=== PATIENT | female | born 1990 | race Caucasian/White ===

== ENCOUNTER 2018-05-05 11:15 | Outpatient (CLI) | payer OTHER, SELFPAY ==
--- NOTE | 2018-05-05 14:19 | PC.NURSE ---
HERE FOR [facility] PRE EMPLOYMENT PHYSICAL
== END 2018-05-05 12:14 | disposition home or self-care (01) ==
LOC: UTC.OUT 11:21
PROVIDERS: Visit Provider Nurse Practitioner
DX: Z02.1 Encounter for pre-employment examination (principal)

== ENCOUNTER → 2018-07-18 13:46 | Outpatient (CLI) | payer OTHER, SELFPAY ==
--- NOTE | 2018-07-18 13:59 | US_ITS ---
US OB /maternal detail: INDICATION: ITS.REASON: US OB Complete ORDERING PHYSICIAN: Ester Alfred MD PATIENT AGE: 28 years US OB /maternal detail: INDICATION: ITS.REASON: US OB Complete ORDERING PHYSICIAN: Ester Alfred MD PATIENT AGE: 28 years TECHNIQUE: ultrasound transabdominal scanning. MW COMPARISON: No previous relevant studies. FINDINGS: Single viable intrauterine gestation. Cephalic position Currently. Placenta: Anterior placenta grade 1. No previa The cervix appears satisfactory & closed measuring nearly 4 cm in length. Complete survey performed and was unremarkable on the submitted images as in PACS. No discrete anomalies identified on survey imaging by technologist. Active fetus.Three-vessel cord with satisfactory umbilical cord insertion. Survey of brain & ventricles. In posterior fossa unremarkable Face and neck survey unremarkable. Nasion intact Diaphragm and chest views unremarkable. 4- chamber heart imaged. Cine loop of 4 chamber heart included. LVOT region unremarkable Abdomen: Both kidneys noted and unremarkable. Stomach noted and satisfactory. Spine: Survey of the spine satisfactory with no anomalies identified nor imaged. Both arms and legs noted. Appears to be a female fetus Amniotic Fluid: Adequate. Upper normal amount. Maternal adnexa: No significant findings encountered. Measurements: Average ultrasound age 19 week 6 day. Gestational Age 20 week 5 day. Estimated due date by ultrasound age 812/06/2018. Estimated weight 313 grams. +/- 46 g LMP Growth percentile 9% BPD = 20 week 0 day OFD = 20 week 1 day HC = 19 week 2 day AC = . 20 week 0 day FL = 20 week 0 day Heart Rate = 146 BPM Cerebellum = 21 week 1 day Humerus = 20 week 0 day HC/AC = 1.13.(1.09-1.26.) CI = 79%.(70-86%). FL/BPD is 69%. FL/AC is 22%. WNL IMPRESSION: 19 weeks 6 day Average Ultrasound Age Cephalic position . Anterior placenta . Active fetus Today's complete Anatomical survey was unremarkable & WNL
== END ==
PROVIDERS: PCP Obstetrics & Gynecology; Visit Provider Obstetrics & Gynecology
DX: Z36.0 Encounter for antenatal screening for chromosomal anomalies (principal)
CPT/HCPCS: 76811

== ENCOUNTER → 2018-07-27 13:31 | Outpatient (CLI) | payer OTHER, SELFPAY ==
[2018-07-27 14:01] LABS: Basophils % 0.2 % (0.1-2.0); Eosinophils # 0.1 K/mm3 (0.0-0.4); Eosinophils % 0.7 % (0.1-12.0); Hematocrit 34.8 % (37.0-47.0); Hemoglobin 11.6 g/dL (12.2-16.2); Lymphocytes # 2.2 K/mm3 (0.7-4.5); Lymphocytes % 21.3 % (10-50); Mean Corpuscular HGB Conc 33.2 g/dL (31.8-35.4); Mean Corpuscular Hemoglobin 28.7 pg (27.0-31.2); Mean Corpuscular Volume 86.5 fl (81-99); Mean Platelet Volume 7.7 fl (7.4-10.4); Monocytes # 0.3 K/mm3 (0.1-1.0); Monocytes % 2.6 % (1.7-9.3); Neutrophils # 7.9 K/mm3 (1.8-7.8); Neutrophils % 75.2 % (37.0-80.0); Platelet Count 296 K/mm3 (142-424); Red Blood Count 4.03 M/mm3 (4.20-5.40); Red Cell Distribution Width 13.1 % (11.5-17.5); White Blood Count 10.5 K/mm3 (4.8-10.8)
[2018-07-29 18:30] LABS: HIV Screen 4th Generation wRfx Non Reactive (Non Reactive); Hepatitis B Surface Antigen Negative (Negative); Hepatitis C Antibody <0.1 s/co ratio (0.0-0.9); Rapid Plasma Reagin Ab Titer Non Reactive (NonRea<1:1); Rubella Antibodies, IgG 1.74 index (Immune >0.99)
== END ==
PROVIDERS: Visit Provider Obstetrics & Gynecology
DX: Z34.90 Encounter for supervision of normal pregnancy, unspecified, unspecified trimester (principal)
CPT/HCPCS: 36415; 85025; 86592; 86703; 86762; 86850; 87340; 87380; G0432

== ENCOUNTER → 2018-08-23 10:03 | Outpatient (CLI) | payer OTHER, SELFPAY ==
[2018-08-23 11:13] LABS: Glucose,Fasting 107 mg/dL (60-105)
[2018-08-23 12:29] LABS: Glucose 1 Hour 116 mg/dL (74-106)
== END ==
PROVIDERS: Visit Provider Obstetrics & Gynecology
DX: Z34.90 Encounter for supervision of normal pregnancy, unspecified, unspecified trimester (principal)
CPT/HCPCS: 36415; 82951

== ENCOUNTER 2018-09-07 15:00 | Outpatient (CLI) | payer OTHER, SELFPAY ==
[2018-09-07 15:18] VITALS: BP 143/73; PULSE 93; RESP 18; TEMP 37.1; O2SAT 100; BMI 38.1
[2018-09-07 15:24] VITALS: BP 131/74
[2018-09-07 15:32] LABS: Microscopic, Urine URINE MICROSCOPIC (MICROSCOPIC)
[2018-09-07 15:38] LABS: Appearance,Urine CLEAR (Clear); Bilirubin,Urine Negative (Negative); Blood, Urine TRACE-I (Negative); Color,Urine YELLOW (Yellow); Glucose,Urine (UA) Negative (Negative); Ketones,Urine Negative (Negative); Leukocyte Esterase,Urine 1+ (Negative); Nitrate,Urine Negative (Negative); Protein,Urine Negative (Negative); Specific Gravity, Urine 1.025 (1.005-1.030); Urobilinogen,Urine 0.2 EU/dl (0.2)
[2018-09-07 15:51] LABS: Amphetamine/Metha Screen,Urine Negative ng/mL (<1000); Barbiturates Screen,Urine Negative ng/mL (<200); Benzodiazepines Screen,Urine Negative ng/mL (<200); Cannabinoid Screen,Urine Negative ng/mL (<50); Cocaine Screen,Urine Negative ng/mL (<300); Methadone Screen,Urine Negative ng/mL (<300); Opiate Screen,Urine Negative ng/mL (<300); Phencyclidine Screen,Urine Negative ng/mL (<25)
[2018-09-07 15:58] LABS: Bacteria,Urine 1+ /lpf; RBC,Urine Occasional #/hpf (0-3)
== END 2018-09-07 16:01 | disposition home or self-care (01) ==
LOC: OBOUT 15:02 → OB 15:04
PROVIDERS: Visit Provider Obstetrics & Gynecology
DX: O26.93 Pregnancy related conditions, unspecified, third trimester (principal); Z3A.28 28 weeks gestation of pregnancy; R10.9 Unspecified abdominal pain
CPT/HCPCS: 59025; 80305; 81001; 87086

== ENCOUNTER → 2018-10-19 14:52 | Outpatient (CLI) | payer OTHER, SELFPAY ==
--- NOTE | 2018-10-19 14:53 | US_ITS ---
US OB follow up: Indication: ITS.REASON: US OB- Growth THAO- LGA ORDERING PHYSICIAN: Ester Alfred MD PATIENT AGE: 28 years FINDINGS: Transabdominal imaging The following parameters are obtained: Average ultrasound age is 33w6d. Estimated due date by ultrasound is 34w0d. Estimated weight is 2286 grams. This is 30th percentile BPD: 33w5d OFD: 34w3d HC: 33w5d AC: 33w6d FL: 34w1d heart rate: 147 bpm. HC/AC: 1.02 (0.96-1.11) Cephalic index: 78% (70-86%) FL/BPD: 79% (71-87%) FL/AC: 22% (20-24%) Amniotic fluid index: 16 cm No obvious anomalies evident. Placenta: Anterior GR 2 Cervix: Appears closed and measures 4 cm IMPRESSION: A single fetus which is in cephalic presentation with an average ultrasound age of 34 weeks 0 days with an estimated weight 2226 g which is 30th percentile. All parameters correlate. See above for details
== END ==
PROVIDERS: Visit Provider Obstetrics & Gynecology
DX: O36.60X0 Maternal care for excessive fetal growth, unspecified trimester, not applicable or unspecified (principal)
CPT/HCPCS: 76816

== ENCOUNTER → 2018-10-26 16:38 | Outpatient (CLI) | payer OTHER, SELFPAY ==
[2018-10-29 05:11] LABS: Neisseria gonorrhoeae, NAA Negative (Negative)
== END ==
PROVIDERS: Visit Provider Obstetrics & Gynecology
DX: Z34.90 Encounter for supervision of normal pregnancy, unspecified, unspecified trimester (principal)
CPT/HCPCS: 86403; 87491; 87591

== ENCOUNTER 2021-06-16 15:57 | Emergency (ER) | payer OTHER, SELFPAY ==
[2021-06-16 16:52] VITALS: BP 130/85; PULSE 85; RESP 16; TEMP 37.1; O2SAT 98; BMI 36.8
--- NOTE | 2021-06-16 17:07 | HMH.EDUTC ---
[facility] Disposition Clinical Impression: Sinusitis Qualifiers: Sinusitis location: unspecified location Chronicity: unspecified Qualified Code(s): J32.9 - Chronic sinusitis, unspecified Disposition: Home, Self-Care Condition on Discharge: Good Instructions: Sinusitis, DI for Sinusitis Additional Instructions: *Monitor Temp, Over the counter Motrin or Tylenol as directed/as needed Tylenol every 4 hours and Motrin every 6 hours (as long as your family doctor has told you that you can take it) for fever or pain. and straight to ER if unable to lower temp less than 101.0 after medication given *Warm salt water gargles may help to soothe the throat *Throat Lozenges *Warm fluids like tea with honey may help to soothe the throat *Sleep elevated *Humidifier/Vaporizer Take medication as prescribed Return if needed Follow up IMMEDIATELY for new or worsening symptoms or no Noticeable improvement over the next 48-72 hours. 911 for difficulty breathing or swallowing Prescriptions: Amoxicillin/Potassium Clav [Amox-Clav 875-125 mg Tablet] 1 tab PO BID #14 tab Transmission Status: Pending to [facility] methylPREDNISolone [Medrol 4mg tab] 4 mg PO DIRECTED #21 tab Transmission Status: Pending to [facility] Referrals: Provider,Referral, MD [Primary Care Provider] - As needed Time of Disposition: 17:20 Medical Decision Making - Sebas Inquiry Pt receiving controlled substance: No Sebas was queried for this patient: No Vital Signs: 06/16/21 16:52 Temperature 98.7 F Temperature Source Oral Pulse Rate [Right Radial] 85 Respiratory Rate 16 Blood Pressure [Right Arm] 130/85 Blood Pressure Mean [Right Arm] 100 Blood Pressure Source [Right Arm] Automatic Cuff Blood Pressure Position [Right Arm] Sitting 02 Sat by Pulse Oximetry 98 Oxygen Delivery Method Room Air - Lab Data Lab results reviewed: Yes: I reviewed the patient's lab results. [facility] HPI - General Stated complaint: sinus infection Time Seen by Provider: 06/16/21 17:07 Mode of Arrival: Ambulatory Source of Information: Patient Limitations: No Limitations Description of Symptoms (Recalled from Triage Doc. by RN): Pt stated that she has sinus pressure and congestions for the last 3 days. HEENT Symptoms (Recalled from RN notes): No Resp Symptoms (Recalled from RN notes): No Skin Symptoms (Recalled from RN notes): No MS Symptoms (Recalled from RN notes): No Functional Status (Recalled from RN notes): n/a - History of Present Illness Provider Complaint: Patient states that she has been having pressure like feeling in her ears, sinuses and behind her eyes States that it has continued to get worse over the last 3 days States that she feels like she may have a sinus infection - Related Data Home Medications Medication Instructions Recorded Confirmed prenat.vits,brayden,uop-vktt-urjba 1 tab PO DAILY 06/02/18 10/26/18 ferrous sulfate 325 mg (65 mg 325 mg PO DAILY 09/01/18 10/26/18 iron) tablet Previous Rx's Medication Instructions Recorded Amoxicillin/Potassium Clav 1 tab PO BID #14 tab 06/16/21 [Amox-Clav 875-125 mg Tablet] methylPREDNISolone [Medrol 4mg 4 mg PO DIRECTED #21 tab 06/16/21 tab] Allergies Allergy/AdvReac Type Severity Reaction Status Date / Time No Known Allergies Allergy Verified 10/26/18 10:38 - Worker's Comp Is this a Worker's Comp case?: No Is this an H Worker's Comp?: No Is this a [place] Worker's Comp?: No [facility] History - Hepatitis A Screen Drug use history?: No High risk sexual behaviors?: No History of sexually transmitted infection?: No Currently employed?: No Childcare worker?: No Do you have indoor plumbing?: Yes Do you have electricity?: Yes Attestation statement:: This patient has been screened for Hepatitis A risk factors. I have reviewed the patient's past medical history: Yes Other Surgeries: Yes: No Previous Surgery. No: Amputation: No Fractures: N
[2021-06-16 17:24] LABS: UTC Pregnancy Test, Urine Negative (Negative)
[2021-06-16 17:31] VITALS: BP 130/85; PULSE 85; RESP 16; TEMP 37.1; O2SAT 98
== END 2021-06-16 17:28 | disposition home or self-care (01) ==
PROVIDERS: Emergency Provider Nurse Practitioner
DX: J32.9 Chronic sinusitis, unspecified (principal)
CPT/HCPCS: 81025; 99212; G0463

== ENCOUNTER 2021-12-16 21:24 | Observation (INO) | payer OTHER, SELFPAY ==
[2021-12-16 22:30] VITALS: BMI 37.6
[2021-12-16 22:31] VITALS: BP 125/75; PULSE 90; RESP 17; O2SAT 100; BMI 37.6
[2021-12-16 23:48] LABS: Microscopic, Urine URINE MICROSCOPIC (MICROSCOPIC)
[2021-12-16 23:58] LABS: Appearance,Urine CLEAR (Clear); Bilirubin,Urine Negative (Negative); Blood, Urine TRACE-L (Negative); Color,Urine YELLOW (Yellow); Glucose,Urine (UA) Negative (Negative); Ketones,Urine Negative (Negative); Leukocyte Esterase,Urine Negative (Negative); Nitrate,Urine Negative (Negative); PH,Urine 5.5 (5.0-8.5); Protein,Urine Negative (Negative); Specific Gravity, Urine >= 1.030 (1.005-1.030); Urobilinogen,Urine 0.2 EU/dl (0.2)
[2021-12-17] LABS: Barbiturates Screen,Urine Negative ng/ml (<200)
[2021-12-17 00:01] LABS: Amphetamine/Metha Screen,Urine Negative ng/ml (<1000); Benzodiazepines Screen,Urine Negative ng/ml (<200)
[2021-12-17 00:02] LABS: Cocaine Screen,Urine Negative ng/ml (<300)
[2021-12-17 00:03] LABS: Methadone Screen,Urine Negative ng/ml (<300)
[2021-12-17 00:04] LABS: Opiate Screen,Urine Negative ng/ml (<300); Phencyclidine Screen,Urine Negative ng/ml (<25)
[2021-12-17 00:07] LABS: Cannabinoid Screen,Urine Negative ng/ml (<50)
[2021-12-17 00:27] LABS: Bacteria,Urine Trace /lpf; Calcium Oxalate Crystals,Urine 1+ /lpf; WBC,Urine Occasional #/hpf (0-3)
--- NOTE | 2021-12-17 06:00 | US_ITS ---
FINAL REPORT CLINICAL HISTORY: KICKED BY EMANUEL ORDER FINDINGS: There is a single live intrauterine gestation. Presentation is breech. The cervix is closed and measures 3.7 cm. Placenta is anterior, grade 1. movement is noted. Normal heart views are seen. AMNIOTIC FLUID: Appropriate amount. MEASUREMENTS: ULTRASOUND AGE: 24 weeks 1 days. GESTATION AGE: 24 weeks 2 days. ESTIMATED WEIGHT: 661 g GROWTH PERCENTILE: 33% LMP percentile BPD: 5.9 cm consistent with 24 weeks 1 days. OFD: 7.7 cm consistent with 24 weeks 2 days. HC: 21.6 cm consistent with 23 weeks 5 days. AC: 19.3 cm consistent with 24 weeks 1 days. FL: 4.4 cm consistent with 24 weeks 3 days. HC/AC: 1.11 CI: 77% FL/BPD: 74% FL/AC: 23% IMPRESSION: Single living IUP with an ultrasound age of 24 weeks 1 day. Reviewed, Interpreted and Dictated by Grzegorz Zavaleta III, MD Transcribed by Linda Mcdonnell Authenticated and [facility]
--- NOTE | 2021-12-17 08:45 | EXP.HPDC ---
General Admission date:: 12/16/21 *Admission Date: 12/16/21 *Chief complaint: 24 weeks and was kicked by a horse. *History of present illness: She is a 31-year-old 2 para 1 at 24+ weeks gestational age. She was working in her barn and her horse kicked her in the stomach. He kicked her just below her umbilicus. She has some bruising there. The baby is active. The nonstress test is reactive. She does not have any abdominal pain except for the discomfort from the kick. She denies any vaginal bleeding. [facility] Social History Smoking Status: Never smoker alcohol intake: never substance use type: denies use current occupational status: unemployed Travel in the last 8 weeks: None Review of Systems Review of Systems Review of systems:: pertinent systems reviewed and negative unless documented below Exam Data for Last 24 hours Vital signs and Labs for Last 24 Hours: Pulse Resp BP Pulse Ox 90 17 125/75 100 12/16/21 22:31 12/16/21 22:31 12/16/21 22:31 12/16/21 22:31 Laboratory Results - last 24 hr 12/16/21 20:30: Urine Color Yellow, Urine Appearance Clear, Urine pH 5.5, Ur Specific [place] >= 1.030, Urine Protein Negative, Urine Glucose (UA) Negative, Urine Ketones Negative, Urine Blood Trace-l, Urine Nitrate Negative, Urine Bilirubin Negative, Urine Urobilinogen 0.2, Ur Leukocyte Esterase Negative, Urine RBC 3-5, Urine WBC Occasional, Ur Squamous Epith Cells 3-5, Calcium Oxalate Crystal 1+, Urine Bacteria Trace 12/16/21 20:30: Urine Opiates Screen Negative, Urine Methadone Screen Negative, Ur Barbituates Screen Negative, Ur Phencyclidine Scrn Negative, Ur Amphetamines Screen Negative, U Benzodiazepines Scrn Negative, Urine Cocaine Screen Negative, U Marijuana (THC) Screen Negative I & O for Last 24 hours: Intake & Output 12/14/21 12/15/21 12/16/21 12/17/21 11:59 11:59 11:59 11:59 Weight 270 lb Constitutional Constitutional: no acute distress *Routine HEENT Exam Head: Present normocephalic Eye: Present EOMI and PERRL ENT: Present mucous membranes moist *Routine Neck Exam Neck: Present supple and full ROM *Routine Respiratory Exam Respiratory: Absent accessory muscle use (good air entry bilaterally), wheezes or crackles *Routine Cardiovascular Exam Cardiovascular: Present RRR; Absent murmur *Routine Abdominal Exam Abdominal: Present soft and normoactive bowel sounds; Absent tenderness, rebound, guarding or mass *Routine Rectal Exam Rectal:: deferred *Routine Genitalia Exam Genitalia:: deferred *Routine Extremities Exam Extremities: Present full ROM; Absent cyanosis, edema or calf tenderness *Routine Skin Exam Skin: Present intact (good color) *Routine Neurological Exam Neurological: Present alert and oriented X3 Routine Psychiatric Exam Psychiatric: Present normal affect Detailed Rectal Exam Patient deferred: visual exam and digital exam Detailed Exam Patient deferred: external exam, groin exam and perineal exam Meds Home Medications and Allergies Home Medications Medication Instructions Recorded Confirmed Type prenat.vits,brayden,uir-idbl-giiwa 1 tab PO DAILY 06/02/18 10/26/18 History ferrous sulfate 325 mg (65 mg 325 mg PO DAILY 09/01/18 10/26/18 History iron) tablet amoxicillin 875 mg-potassium 1 tab PO BID #14 tabs 06/16/21 Rx clavulanate 125 mg tablet methylprednisolone 4 mg tablet 4 mg PO DIRECTED #21 tabs 06/16/21 Rx New Prescriptions to Start Prescriptions: Allergies Allergy/AdvReac Type Severity Reaction Status Date / Time No Known Allergies Allergy Verified 10/26/18 10:38 Hospital Course Hospital Course Hospital Course: She was observed overnight and has done well. She did not have any bleeding. Nonstress test is reactive for 24 weeks. An ultrasound this morning shows a viable fetus at 24 weeks with no evidence of abruption. Results Data Completed and Pending Lily
== END 2021-12-17 09:15 | disposition home or self-care (01) ==
LOC: OBOUT 21:26 → OB 21:26
PROVIDERS: Admitting Provider Nurse Practitioner Obstetrics & Gynecology; PCP Obstetrics & Gynecology Obstetrics; Visit Provider Nurse Practitioner Obstetrics & Gynecology
DX: O9A.212 Injury, poisoning and certain other consequences of external causes complicating pregnancy, second trimester (principal); Z3A.24 24 weeks gestation of pregnancy; W55.12XA Struck by horse, initial encounter
CPT/HCPCS: 59025; 76805; 80305; 81001; G0378

== ENCOUNTER 2023-05-02 16:16 | Emergency (ER) | payer OTHER, SELFPAY ==
[2023-05-02 16:35] VITALS: BP 137/84; PULSE 80; RESP 18; TEMP 36.9; O2SAT 98; BMI 34.8
--- NOTE | 2023-05-02 16:41 | ED_ITS ---
Discharge Plan Disposition Patient Disposition: Home, Self-Care Condition: Good Prescriptions Prescriptions: New dbxhklwtnmkqnws-lhmqunlue-PJ [Bromfed DM] 2-30-10 mg/5 mL Syrup 5 ml PO Q6H PRN (Reason: Cough) Qty: 240 0RF methylprednisolone 4 mg Tablets,Dose Pack 4 mg PO DIRECTED 6 Days Qty: 21 0RF Rx Instructions: Take 1 pack as directed for 6 days cefdinir 300 mg capsule 300 mg PO BID Qty: 20 0RF No Action prenat.vits,brayden,zft-zybg-uflgu tablet 1 tab PO DAILY Referrals Follow up/Referrals: Subhash Bañuelos MD [Primary Care Provider] - See instructions Activity Restrictions/Add. Instructions Additional Instructions/Restrictions: Drink plenty of fluids. Take tylenol or ibuprofen for pain or fever. Take the medications as directed. Follow up with your regular doctor. GO TO THE ER FOR ANY WORSENING SYMPTOMS Strain all your urine for the next few days. We will culture the urine. That will tell if you have a bladder infection and which antibiotics will treat it best. Sometimes the first antibiotic we prescribe turns out to not work against different bacteria. So, make sure you follow up within 3 days if you are not getting better. Clinical Impressions Clinical Impression: Bronchitis, Dysuria Instructions Patient Instructions: Urine Culture, DI for Acute Bronchitis Discharge ED Provider: Jose Carlos Vitale [facility] General Stated complaint: cough, poss UTI Time Seen by Provider: 05/02/23 16:41 History of Present Illness Provider Complaint: She states that for the past 10 days she has productive cough, chest congestion and malaise. She denies fever, chills, body aches. She also states that she was having left flank pain yesteday. That pain went on for several hours and it went away, but then she started feeling funny in my bladder . Since then she has had bladder discomfort with urination. She states that she has a history of having kidney stones that when she passed them she felt similar to this. She denies pain. Related Data Home Medications Medication Instructions Recorded Confirmed prenat.vits,brayden,sdu-ztpm-aqmmv 1 tab PO DAILY Supplement 06/02/18 05/02/23 Previous Rx's Medication Instructions Recorded vyhjtniblzruece-yxnmpgrfbdyumlr-PV 5 ml PO Q6H PRN Cough #240 mL 05/02/23 2 mg-30 mg-10 mg/5 mL oral syrup (Bromfed DM) cefdinir 300 mg capsule 300 mg PO BID #20 caps 05/02/23 methylprednisolone 4 mg tablets in 4 mg PO DIRECTED 6 days #21 tabs 05/02/23 a dose pack Allergies Allergy/AdvReac Type Severity Reaction Status Date / Time No Known Allergies Allergy Verified 05/02/23 16:52 [facility] Disclaimer: The information contained in this section may have been updated after the patient was seen, as this information can be updated by other users. Medical History (Updated 05/02/23 @ 17:11 by Jose Carlos Vitale APRN) Kidney stones Family History Other Cancer Diabetes Heart attack Hypertension Social History Smoking Status: Never smoker alcohol intake: never substance use type: denies use current occupational status: unemployed Travel in the last 8 weeks: None ROS Obtained: Yes All systems reviewed & no additional complaints except as documented Constitutional Constitutional: Reports poor appetite Eyes Eyes: Reports system reviewed and no additional complaints, except as documented ENT Ears, Nose, Mouth, and Throat: Reports as per HPI Cardiovascular Cardiovascular: Reports system reviewed and no additional complaints, except as documented and Denies chest pain Respiratory Respiratory: Denies shortness of breath, Reports chest congestion, Reports cough, Denies stridor and Denies wheezing Gastrointestinal Gastrointestingal: Reports system reviewed and no additional complaints, except as documented; Denies abdominal pain, diarrhea or vomiting Genitourinary Female Genitourinary: Reports as per HPI, Reports dysuria, Denies urinary frequency, Denies urinary incontinence, Denies urinary hesitancy and Reports urinary urgency Musculoskeletal Musculoskeletal: Reports system reviewed and no additional complaints, except as documented and Denies arthralgias Integumentary/Breasts Skin/Breast: Reports system reviewed and no additional complaints, except as documented and Denies rash Neurologic Neurologic: Denies paresthesias Allergic/Immunologic Allergic/Immunologic: Denies wheezing Physical Exam General General appearance: alert and in no apparent distress Head Head exam: atraumatic, normocephalic and normal inspection Eye Eye exam: Present normal appearance, PERRL and EOMI ENT ENT exam: Present normal exam, normal oropharynx, mucous membranes moist, TM's normal bilaterally and normal external ear exam Neck Neck exam: Present normal inspection, full ROM and trachea midline; Absent meningismus or lymphadenopathy Chest Chest inspection: Present normal inspection and symmetric chest wall rise; Absent tenderness Respiratory Respiratory exam: Present normal lung sounds bilaterally; Absent respiratory distress Cardiovascular Cardiovascular exam: Present regular rate and normal rhythm; Absent JVD Abdominal Exam Abdominal exam: Present soft and normal bowel sounds; Absent distention, tenderness or guarding Extremities Exam Extremities exam: Present normal inspection, full ROM and normal capillary refill; Absent calf tenderness Back Exam Back exam: Present normal inspection; Absent tenderness, CVA tenderness (R) or CVA tenderness (L) Neurological Exam Neurological exam: Present alert and oriented X3 Psychiatric Psychiatric exam: Present normal affect and normal mood Skin Skin exam: Present warm, dry, intact and normal color Lymphatic Lymphatic Findings: no adenopathy Medical Decision Making Medical Records Medical records reviewed: No I reviewed the patient's medical records. Sebas Inquiry Pt receiving controlled substance: No Lab Data Lab results reviewed: Yes I reviewed the patient's lab results.
[2023-05-02 17:02] LABS: Apearance,Urine Clear (Clear); Bilirubin,Urine Negative (Negative); Blood, Urine 1+ (Negative); Color,Urine Yellow (Yellow); Glucose,Urine (UA) Negative (Negative); Ketones,Urine Negative (Negative); PH,Urine 5.5 (5.0-8.5); Protein,Urine Negative (Negative); UTC Leukocyte Esterase,Urine Negative (Negative); UTC Nitrate,Urine Negative (Negative); Urobilinogen,Urine 0.2 EU/dl (0.2)
[2023-05-02 17:31] VITALS: BP 137/84; PULSE 80; RESP 18; TEMP 36.9; O2SAT 98
== END 2023-05-02 17:31 | disposition home or self-care (01) ==
PROVIDERS: Emergency Provider Nurse Practitioner Family; PCP Family Medicine
DX: R30.0 Dysuria (principal); B95.2 Enterococcus as the cause of diseases classified elsewhere; J20.9 Acute bronchitis, unspecified; R05.9 Cough, unspecified; R09.89 Other specified symptoms and signs involving the circulatory and respiratory systems; R53.81 Other malaise; Z87.442 Personal history of urinary calculi
CPT/HCPCS: 81003; 87086; 99212; 99214; G0463

== ENCOUNTER 2023-05-17 16:28 | Emergency (ER) | payer OTHER, SELFPAY ==
[2023-05-17 17:15] VITALS: BP 131/77; PULSE 84; RESP 20; TEMP 36.9; O2SAT 97; BMI 35.9
[2023-05-17 17:24] VITALS: BP 131/77; PULSE 84; RESP 20; TEMP 36.9; O2SAT 97
--- NOTE | 2023-05-17 17:57 | ED_ITS ---
Discharge Plan Disposition Patient Disposition: Home, Self-Care Condition: Good Prescriptions Prescriptions: No Action prenat.vits,brayden,igg-clyg-daznx tablet 1 tab PO DAILY Referrals Follow up/Referrals: Subhash Bañuelos MD [Primary Care Provider] - See instructions Activity Restrictions/Add. Instructions Additional Instructions/Restrictions: Follow up with your Family Doctor if needed Follow up with your OBGYN *Monitor Temp, Over the counter Motrin or Tylenol as directed/as needed Tylenol every 4 hours and Motrin every 6 hours (as long as your family doctor has told you that you can take it) for fever or pain. and straight to ER if unable to lower temp less than 101.0 after medication given *Warm salt water gargles may help to soothe the throat *Throat Lozenges? *Warm fluids like tea with honey may help to soothe the throat? *Sleep elevated *Humidifier/Vaporizer *Follow up IMMEDIATELY for new or worsening symptoms or no Noticeable improv ement over the next 48-72 hours. 911 for difficulty breathing or swallowing You were tested for today for Upper Respiratory Panel with COVID19 your test result should be back in the next 24hours, you may check your results on the [facility] if your COVID or Influenza is positive you must Quarantine for 5 days Clinical Impressions Clinical Impression: Cough Qualifiers: Cough type: unspecified Qualified Code(s): R05.9 - Cough, unspecified Instructions Patient Instructions: Cough Discharge ED Provider: Kirsten Borja [facility] General Stated complaint: cough congestion rasping Mode of Arrival: Ambulatory Source of Information: Patient Limitations: No Limitations Time Seen by Provider: 05/17/23 17:58 Description of Symptoms (Recalled from Triage Doc. by RN): PATIENT C/O CHEST CONGESTION AND WET COUGH FOR MORE THAN 3 WEEKS. SHE STATES SHE WAS GIVEN CEFDINIR AND STEROIDS APPROX 2 WEEKS AGO BUT DID NOT GET BETTER HEENT Symptoms (Recalled from RN notes): No Resp Symptoms (Recalled from RN notes): Yes Skin Symptoms (Recalled from RN notes): No MS Symptoms (Recalled from RN notes): No Functional Status (Recalled from RN notes): WNL History of Present Illness Provider Complaint: Patient states that she is 6wks OB States that she was seen and treated with antibiotics about 3 weeks ago States that she finished all the medication and still having a bad cough and congestion States that her children has been having similar symptoms and it was viral states that she wanted to get checked to see if she may have RSV or something or if she needs a different antibiotic Related Data Home Medications Medication Instructions Recorded Confirmed prenat.vits,brayden,sqd-wkwv-cevno 1 tab PO DAILY Supplement 06/02/18 05/17/23 Allergies Allergy/AdvReac Type Severity Reaction Status Date / Time No Known Allergies Allergy Verified 05/02/23 16:52 Worker's Comp Is this a Worker's Comp case?: No [facility] Disclaimer: The information contained in this section may have been updated after the patient was seen, as this information can be updated by other users. Medical History (Updated 05/17/23 @ 18:08 by Kirsten Borja APRN) Kidney stones Family History Other Cancer Diabetes Heart attack Hypertension Social History Smoking Status: Never smoker alcohol intake: never substance use type: denies use current occupational status: unemployed Travel in the last 8 weeks: None ROS Obtained: Yes All systems reviewed & no additional complaints except as documented and Yes Systems reviewed as appropriate & no additional complaints except as documented Constitutional Constitutional: Reports system reviewed and no additional complaints, except as documented, Reports as per HPI, Denies body ache, Denies chills and Denies fever(s) ENT Ears, Nose, Mouth, and Throat: Reports system reviewed and no additional complaints, except as documented and Reports as per HPI Cardiovascular Cardiovascular: Reports system reviewed and no additional complaints, except as documented and Reports as per HPI Respiratory Respiratory: Reports system reviewed and no additional complaints, except as documented, Reports as per HPI, Denies shortness of breath, Reports chest congestion and Reports cough Physical Exam General General appearance: alert and in no apparent distress ENT ENT exam: Present mucous membranes moist Chest Chest inspection: Present normal inspection; Absent symmetric chest wall rise or tenderness Respiratory Respiratory exam: Present normal lung sounds bilaterally; Absent respiratory distress or wheezes Cardiovascular Cardiovascular exam: Present regular rate, normal rhythm and normal heart sounds Neurological Exam Neurological exam: Present alert, oriented X3 and normal gait Medical Decision Making Sebas Inquiry Pt receiving controlled substance: No Sebas was queried for this patient: No Vital Signs: 05/17/23 17:15 05/17/23 17:24 Temperature 98.5 F 98.5 F Temperature Source Oral Pulse Rate 84 Pulse Rate [Right Brachial] 84 Respiratory Rate 20 20 Blood Pressure 131/77 Blood Pressure [Right Arm] 131/77 Blood Pressure Mean [Right Arm] 95 Blood Pressure Source [Right Arm] Automatic Cuff Blood Pressure Position [Right Arm] Sitting 02 Sat by Pulse Oximetry 97 Oxygen Delivery Method Room Air Medical Decision Narrative: discussed with patient will do URP if negative then will prescribe azithromycin and Mucinex discussed CXR patient is 6wks OB
[2023-05-17 18:16] LABS: Adenovirus,PCR Not Detected (NotDetected); Coronavirus 19, PCR Not Detected (NotDetected); Coronavirus 229E Not Detected (NotDetected); Coronavirus NL63 Not Detected (NotDetected); Coronavirus OC43 Not Detected (NotDetected); Coronovirus HKU1,PCR Not Detected (NotDetected); Human Metapneumovirus Not Detected (NotDetected); Influenza A, PCR Not Detected (NotDetected); Influenza AH1, 2009 Not Detected (NotDetected); Influenza AH1, PCR Not Detected (NotDetected); Influenza AH3,PCR Not Detected (NotDetected); Influenza B, PCR Not Detected (NotDetected); Parainfluenza 1, PCR Not Detected (NotDetected); Parainfluenza 2, PCR Not Detected (NotDetected); Parainfluenza 3, PCR Not Detected (NotDetected); Parainfluenza 4, PCR Not Detected (NotDetected); Respiratory Syncytial Virus Not Detected (NotDetected); Rhinovirus/Enterovirus Not Detected (NotDetected)
== END 2023-05-17 18:14 | disposition home or self-care (01) ==
PROVIDERS: Emergency Provider Nurse Practitioner; PCP Family Medicine
DX: O26.891 Other specified pregnancy related conditions, first trimester (principal); R05.9 Cough, unspecified; R09.89 Other specified symptoms and signs involving the circulatory and respiratory systems; Z3A.01 Less than 8 weeks gestation of pregnancy
CPT/HCPCS: 87581; 87632; 87635; 87798; 99212; 99214; G0463

== ENCOUNTER 2023-10-08 10:50 | Emergency (ER) | payer OTHER, SELFPAY ==
[2023-10-08 11:14] VITALS: PULSE 83; RESP 16; TEMP 36.9; O2SAT 96; BMI 33.7
--- NOTE | 2023-10-08 11:17 | EXP.UTC ---
Discharge Plan Disposition Patient Disposition: Home, Self-Care Condition: Good Prescriptions Prescriptions: New methylprednisolone [Medrol (Eloy)] 4 mg tablets,dose pack 4 mg PO DIRECTED Qty: 21 0RF Rx Instructions: As directed starting Wednesday morning cyclobenzaprine 10 mg tablet 10 mg PO BID PRN (Reason: muscle spasm) Qty: 20 0RF Rx Instructions: May cause drowsiness No Action prenat.vits,brayden,axe-[id number] tablet 1 tab PO DAILY azithromycin [Zithromax Z-Eloy] 250 mg tablet See Rx Instructions .ROUTE .COMPLEX 5 Days Qty: 6 0RF Rx Instructions: For 250 mg dose pack: take 500 mg today (day 1), then 250 mg for 4 days (days 2-5) Referrals Follow up/Referrals: Subhash Bañuelos MD [Primary Care Provider] - See instructions Clinical Impressions Clinical Impression: Acute right-sided back pain with sciatica Instructions Patient Instructions: DI for Back Pain With Sciatica Discharge ED Provider: Kajal Parsons [facility] HPI General Stated complaint: lower back, R side, down R leg Time Seen by Provider: 10/08/23 11:20 History of Present Illness Provider Complaint: Low back pain X a few weeks. Worse last night and this am. Pain in right lower back radiating into right buttock and down the back of her right leg. 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 Onset (ago): day(s) Location: back, right and lower extremity Radiation: extremity Severity: severe Severity scale (1-10): 7 Quality: burning and sharp Consistency: constant Relieving factors: immobilization Exacerbating factors: movement Associated symptoms: denies other symptoms Treatments prior to arrival: NSAID Related Data Home Medications Medication Instructions Recorded Confirmed prenat.vits,brayden,[id number] 1 tab PO DAILY Supplement 06/02/18 05/17/23 Previous Rx's Medication Instructions Recorded azithromycin 250 mg tablet See Rx Instructions PO .COMPLEX 5 05/18/23 (Zithromax Z-Eloy) days #6 tabs cyclobenzaprine 10 mg tablet 10 mg PO BID PRN muscle spasm #20 10/08/23 tabs methylprednisolone 4 mg tablets in 4 mg PO DIRECTED #21 tabs 10/08/23 a dose pack (Medrol (Eloy)) Allergies Allergy/AdvReac Type Severity Reaction Status Date / Time No Known Allergies Allergy Verified 10/08/23 11:18 [facility] Disclaimer: The information contained in this section may have been updated after the patient was seen, as this information can be updated by other users. Medical History (Updated 10/08/23 @ 11:30 by HARISH Albert) Kidney stones Family History Diabetes Heart attack Cancer Hypertension Social History Smoking Status: Never smoker alcohol intake: never substance use type: denies use current occupational status: unemployed Travel in the last 8 weeks: None ROS Obtained: Yes All systems reviewed & no additional complaints except as documented Musculoskeletal Musculoskeletal: Reports back pain and Reports radiating pain into limb Physical Exam General General appearance: alert and in no apparent distress ENT ENT exam: Present mucous membranes moist Chest Chest inspection: Present normal inspection; Absent symmetric chest wall rise or tenderness Respiratory Respiratory exam: Present normal lung sounds bilaterally; Absent respiratory distress or wheezes Cardiovascular Cardiovascular exam: Present regular rate, normal rhythm and normal heart sounds Back Exam Back exam: Present sciatic notch tenderness (R) and straight leg raise (R) Neurological Exam Neurological exam: Present alert, oriented X3 and normal gait Medical Decision Making Sebas Inquiry Pt receiving controlled substance: No
[2023-10-08 11:26] LABS: Color,Urine Amber (Yellow)
[2023-10-08 11:27] LABS: Apearance,Urine Clear (Clear); PH,Urine 5.5 (5.0-8.5)
[2023-10-08 11:28] LABS: Glucose,Urine (UA) Negative (Negative); Ketones,Urine Negative (Negative); Protein,Urine Negative (Negative)
[2023-10-08 11:31] LABS: Bilirubin,Urine Trace (Negative); Blood, Urine Trace (Negative)
[2023-10-08 11:32] LABS: UTC Leukocyte Esterase,Urine Negative (Negative); UTC Nitrate,Urine Negative (Negative); Urobilinogen,Urine 0.2 EU/dl (0.2)
[2023-10-08] MEDS: methylPREDNISolone ACETATE 80MG/ML VIAL 80 MG IM (11:34)
[2023-10-08] MEDS: KETOROLAC 60MG/2ML VIAL 60 MG IM (11:35)
[2023-10-08 11:58] VITALS: BP 141/72; PULSE 85; RESP 16; TEMP 36.9; O2SAT 97
== END 2023-10-08 11:59 | disposition home or self-care (01) ==
PROVIDERS: Emergency Provider Physician Assistant; PCP Family Medicine
DX: M54.41 Lumbago with sciatica, right side (principal)
CPT/HCPCS: 81003; 96372; 99212; 99214; G0463; J1010; J1885

== ENCOUNTER 2023-10-09 11:13 | Emergency (ER) | payer OTHER, SELFPAY ==
[2023-10-09 11:13] VITALS: BP 139/96; PULSE 78; RESP 13; TEMP 36.6; O2SAT 97; BMI 33.5
--- NOTE | 2023-10-09 11:34 | CT_ITS ---
PROCEDURE INFORMATION: Exam: CT Lumbar Spine Without Contrast Exam date and time: 10/09/2023 12:04 PM Age: 33 years old Clinical indication: Low back pain; Additional info: Midline rad rle l4 distrib TECHNIQUE: Imaging protocol: Computed tomography of the lumbar spine without contrast. Radiation optimization: All CT scans at this facility use at least one of these dose optimization techniques: automated exposure control; mA and/or kV adjustment per patient size (includes targeted exams where dose is matched to clinical indication); or iterative reconstruction. COMPARISON: ABDPEL CT abdomen pelvis wo con 01/12/2018 10:06 AM FINDINGS: Bones/joints: No acute fracture. Normal alignment. At L4-L5, there is broad disc bulge. At L5-S1, there is broad disc bulge slightly asymmetric to the right. No severe spinal canal stenosis. No significant neural foraminal narrowing. Soft tissues: Punctate nonobstructing left renal calculi. IMPRESSION: Disc bulges lower lumbar spine without canal or foraminal stenosis.
--- NOTE | 2023-10-09 11:38 | HMH.EDGENADL ---
Discharge Plan Disposition Patient Disposition: Home, Self-Care Prescriptions Prescriptions: New gabapentin 300 mg capsule See Rx Instructions .ROUTE .COMPLEX Qty: 21 0RF Rx Instructions: 300 mg orally once daily on day 1, then twice daily from day to onwards. This may make you sleepy so please refrain from operating heavy machinery the first few days to assess how you react to it. lidocaine 5 % adhesive patch,medicated 1 patch topical DAILY Qty: 15 0RF Rx Instructions: leave on most painful area for up to 12 hrs methocarbamol 500 mg tablet 1,000 mg PO Q8H PRN (Reason: back spasm) Qty: 36 0RF No Action prenat.vits,brayden,afi-[id number] tablet 1 tab PO DAILY methylprednisolone [Medrol (Eloy)] 4 mg tablets,dose pack 4 mg PO DIRECTED Qty: 21 0RF Rx Instructions: As directed starting Wednesday morning cyclobenzaprine 10 mg tablet 10 mg PO BID PRN (Reason: muscle spasm) Qty: 20 0RF Rx Instructions: May cause drowsiness azithromycin [Zithromax Z-Eloy] 250 mg tablet See Rx Instructions .ROUTE .COMPLEX 5 Days Qty: 6 0RF Rx Instructions: For 250 mg dose pack: take 500 mg today (day 1), then 250 mg for 4 days (days 2-5) Referrals Follow up/Referrals: Subhash Bañuelos MD [Primary Care Provider] - See instructions Activity Restrictions/Add. Instructions Additional Instructions/Restrictions: At this time it was felt you are safe to be discharged home. If new or worsening symptoms please do not hesitate to return the emergency department. The type of pain that you have is called radicular back pain and is likely due to a compressed nerve that will heal over the next few weeks. If your symptoms last longer than 3 weeks please follow-up with Dr. Bañuelos to see about a referral to [facility]. If your symptoms last longer than [address] Bañuelos will likely continue investigating her back pain with advanced imaging. Please take your medication as prescribed. Clinical Impressions Clinical Impression: Radicular low back pain Discharge ED Provider: Mumtaz Rankin General Adult HPI General Chief complaint: PAIN Stated complaint: back pain, no accident Time Seen by Provider: 10/09/23 11:15 Mode of Arrival: Ambulatory Source of Information: Patient Limitations: No Limitations Description of Symptoms (Recalled from ER Triage Doc. by RN): pt reports lower back pain. radiating into the right leg at times. pt reports symptoms ongoing for the past 1.5 weeks. History of Present Illness HPI narrative: Patient is a 33-year-old female with no pertinent past medical history who presents emergency department for evaluation of back pain. Has been going on for the past 1 to 2 weeks, mid lumbar spine radiating down her right superior buttock down the lateral aspect of her right upper extremity that does not go past the knee. 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 It is worse with lying in bed and relieved with activity as the day progresses however does not go away. Due to persistent symptoms she presents here for continued evaluation. No urinary incontinence, no saddle anesthesia. Related Data Home Medications Medication Instructions Recorded Confirmed prenat.vits,brayden,dmn-pygq-euvci 1 tab PO DAILY Supplement 06/02/18 05/17/23 Previous Rx's Medication Instructions Recorded azithromycin 250 mg tablet See Rx Instructions PO .COMPLEX 5 05/18/23 (Zithromax Z-Eloy) days #6 tabs cyclobenzaprine 10 mg tablet 10 mg PO BID PRN muscle spasm #20 10/08/23 tabs methylprednisolone 4 mg tablets in 4 mg PO DIRECTED #21 tabs 10/08/23 a dose pack (Medrol (Eloy)) gabapentin 300 mg capsule See Rx Instructions .Route 10/09/23 .COMPLEX #21 caps lidocaine 5 % topical patch 1 patch topical DAILY back pain 10/09/23 #15 ea methocarbamol 500 mg tablet 1,000 mg (2 x 500 mg) PO Q8H PRN 10/09/23 back spasm #36 tabs Allergies Allergy/AdvReac Type Severity Reaction Status Date / Time No Known Allergies Allergy Verified 10/08/23 11:18 [facility] Disclaimer: The information contained in this section may have been updated after the patient was seen, as this information can be updated by other users. Medical History (Updated 10/09/23 @ 13:39 by Mumtaz Rankin MD) Kidney stones Family History Other Cancer Diabetes Heart attack Hypertension Social History Smoking Status: Never smoker alcohol intake: never substance use type: denies use current occupational status: unemployed Travel in the last 8 weeks: None ROS Obtained: Yes Systems reviewed as appropriate & no additional complaints except as documented Physical Exam General General appearance: alert and in no apparent distress Head Head exam: atraumatic and normocephalic Eye Eye exam: Present PERRL ENT ENT exam: Present mucous membranes moist Neck Neck exam: Present normal inspection Chest Chest inspection: Present normal inspection and symmetric chest wall rise Respiratory Respiratory exam: Present normal lung sounds bilaterally; Absent respiratory distress Cardiovascular Cardiovascular exam: Present regular rate and normal rhythm Abdominal Exam Abdominal exam: Present soft; Absent tenderness Extremities Exam Extremities exam: Present normal inspection Back Exam Back exam: Present tenderness (Lumbar midline and right paraspinal), straight leg raise (R) (Reproduces symptoms) and straight leg raise (L) (Reproduces symptoms although less then the ipsilateral side) Neurological Exam Neurological exam: Present alert, CN II-XII intact and other (5 out of 5 strength all joints of the bilateral lower extremities.); Absent motor sensory deficit Psychiatric Psychiatric exam: Present normal affect Skin Skin exam: Present warm and dry Medical Decision Making Seabs Inquiry Pt receiving controlled substance: No Vital Signs: 10/09/23 11:13 Temperature 97.9 F Temperature Source Oral Pulse Rate [Left Radial] 78 Respiratory Rate 13 Blood Pressure [Right Arm] 139/96 H Blood Pressure Mean [Right Arm] 110 02 Sat by Pulse Oximetry 97 Oxygen Delivery Method Room Air Lab Data Lab Results 10/09/23 11:17: Urine HCG, Qual Negative Orders (Tests/Meds): ED MEDICATIONS Discontinued Medications Generic Name Dose Route Start Last Admin Trade Name Anastasiia PRN Reason Stop Dose Admin Acetaminophen 1,000 mg 10/09/23 11:35 10/09/23 11:55 Acetaminophen 500mg Tab PO 10/09/23 11:36 1,000 mg ONCE ONE Administration Ketorolac Tromethamine 20 mg 10/09/23 11:36 10/09/23 11:55 Ketorolac 10mg Tablet PO 10/09/23 11:37 20 mg ONCE ONE Administration Lidocaine 1 each 10/09/23 11:35 10/09/23 11:54 Lidocaine 5% Transdermal Patch TP 10/09/23 11:36 1 each ONCE ONE Administration Methocarbamol 1,000 mg 10/09/23 11:36 10/09/23 11:55 Methocarbamol 500mg Tablet PO 10/09/23 11:37 1,000 mg ONCE ONE Administration ORDERS Category Date Time Status CT lumbar spine wo con Stat Cat Scan 10/09/23 11:34 Taken Urine , HCG Qual. Stat Lab 10/09/23 11:17 Completed Medical Decision Narrative: In summary patient is a 33-year-old female with past medical history described above who presents emergency department for evaluation of back pain. Patient is hemodynamically stable nontoxic-appearing upon arrival, afebrile. Patient has midline tenderness for which lumbar spine CT without contrast is warranted given the differential includes compression fracture, among others. hCG will be obtained. I suspect that patient has lumbago or sciatica in an L3 distribution that is causing her symptoms which will likely cause subacute pain with resolution. She was made aware of my working diagnosis and the expected course. Initial interventions will be conducted with multimodal pain control and topical lidocaine patch. Initial workup reviewed by me, hCG negative. CT imaging informally visualized by me, no significant compression fracture, no obvious retropulsion. Upon repeat evaluation patient had minimal improvement of symptoms. Given the modality of pain control that I offered the only thing I did not treat as neuropathic, it does line up in an L3 distribution of radicular pain therefore patient will be discharged with a course of gabapentin and was given return precautions and will follow-up on an outpatient basis if symptoms persist. Critical Care Critical Care Time Critical Care Time: No
[2023-10-09 11:44] LABS: Urine Pregnancy, HCG Qual. Negative (Negative)
[2023-10-09] MEDS: LIDOCAINE 5% TRANSDERMAL PATCH 1 EACH TP (11:54)
[2023-10-09] MEDS: ACETAMINOPHEN 500MG TAB 1000 MG PO (11:55)
[2023-10-09] MEDS: KETOROLAC 10MG TABLET 20 MG PO (11:55)
[2023-10-09] MEDS: METHOCARBAMOL 500MG TABLET 1000 MG PO (11:55)
--- NOTE | 2023-10-09 12:06 | PC.NURSE ---
patient gone to CT at this time
--- NOTE | 2023-10-09 12:47 | PC.NURSE ---
patient in room, no needs voiced at this time.
[2023-10-09 13:43] VITALS: BP 139/96; PULSE 78; RESP 13; TEMP 36.6
--- NOTE | 2023-10-09 14:20 | PC.NURSE ---
I called the pt to update her on her CT results per
== END 2023-10-09 13:44 | disposition home or self-care (01) ==
PROVIDERS: Emergency Provider Emergency Medicine; PCP Family Medicine
DX: M54.16 Radiculopathy, lumbar region (principal); M51.26 Other intervertebral disc displacement, lumbar region
CPT/HCPCS: 72131; 81025; 99284

== ENCOUNTER 2024-04-16 21:18 | Outpatient (CLI) | payer OTHER, SELFPAY ==
[2024-04-16 21:26] VITALS: BP 136/67; PULSE 79; RESP 18; TEMP 36.7; O2SAT 97; BMI 35.5
[2024-04-16 21:29] VITALS: BMI 35.5
[2024-04-16 21:44] LABS: Microscopic, Urine URINE MICROSCOPIC (MICROSCOPIC)
[2024-04-16 21:46] LABS: Appearance,Urine CLEAR (Clear); Bilirubin,Urine Negative (Negative); Blood, Urine Negative (Negative); Color,Urine YELLOW (Yellow); Glucose,Urine (UA) Negative (Negative); Ketones,Urine Negative (Negative); Leukocyte Esterase,Urine Negative (Negative); Nitrate,Urine Negative (Negative); Protein,Urine Negative (Negative); Urobilinogen,Urine 0.2 EU/dl (0.2)
[2024-04-16 21:56] LABS: Barbiturates Screen,Urine Negative ng/ml (<200); Benzodiazepines Screen,Urine Negative ng/ml (<200)
[2024-04-16 21:57] LABS: Amphetamine/Metha Screen,Urine Negative ng/ml (<1000)
[2024-04-16 21:58] LABS: Cannabinoid Screen,Urine Negative ng/ml (<50)
[2024-04-16 21:59] LABS: Cocaine Screen,Urine Negative ng/ml (<300)
[2024-04-16 22:00] LABS: Methadone Screen,Urine Negative ng/ml (<300); Opiate Screen,Urine Negative ng/ml (<300)
[2024-04-16 22:01] LABS: Phencyclidine Screen,Urine Negative ng/ml (<25)
[2024-04-16 22:02] LABS: Squamous Epithelial Cell,Urine Occasional #/hpf (0-5)
== END 2024-04-16 22:04 | disposition home or self-care (01) ==
LOC: OBOUT 21:20 → OB 21:20
PROVIDERS: PCP Family Medicine; Visit Provider Obstetrics & Gynecology
DX: O36.8120 Decreased fetal movements, second trimester, not applicable or unspecified (principal); Z3A.25 25 weeks gestation of pregnancy
CPT/HCPCS: 80307; 81001; G0463

== ENCOUNTER 2025-02-27 08:36 | Emergency (ER) | payer OTHER, SELFPAY ==
[2025-02-27 08:39] VITALS: BP 133/88; PULSE 74; RESP 18; TEMP 36.8; O2SAT 98; BMI 34.8
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
--- NOTE | 2025-02-27 09:09 | ED_ITS ---
Discharge Plan Disposition Patient Disposition: Home, Self-Care Prescriptions Prescriptions: No Action triamcinolone acetonide 0.5 % cream 1 applic topical TID Qty: 30 0RF Referrals Follow up/Referrals: Subhash Bañuelos MD [Primary Care Provider, [facility]] - See instructions Activity Restrictions/Add. Instructions Additional Instructions/Restrictions: At this time it was felt you are safe to be discharged home. If new or worsening symptoms please do not hesitate to return the emergency department. Please follow-up with your family doctor in 10 days to have your sutures removed. Please take your finger splint off and range her finger every day to make sure it does not get stiff. It is okay to shower and wash her hands, do not submerge her hand in water such as baths, kitchen dishes in the sink, swimming pool, hot tub. Clinical Impressions Clinical Impression: Finger laceration Instructions Patient Instructions: DI for Laceration Repair Print Language Print Language: Russian Discharge ED Provider: Mumtaz Rankin General Adult HPI General Chief complaint: Wound/Laceration Stated complaint: AO laceration left hand middle finger Time Seen by Provider: 02/27/25 08:46 Mode of Arrival: Ambulatory Source of Information: Patient Description of Symptoms (Recalled from ER Triage Doc. by RN): pt presents to the ED with a laceration to her left 3rd digit. pt reports she was trying to cut a bagel this morning when the knife slipped and cut her finger. Denies blood thinners. Last tetanus shot was last year per pt. History of Present Illness HPI narrative: Patient is a 34-year-old female [id number] who presents emergency department for evaluation of traumatic injury sustained to her left long finger. History is obtained by patient at bedside she was cutting a bagel when she inadvertently sliced her fingertip causing a wound that was deep enough that she became concerned and present here for continued evaluation. Tdap is up-to-date. No other trauma. Please note that above description of symptoms, in this electronic medical re cord under categorization of recalled from ER triage doctor by RN are reflective of an initial nursing assessment, however, is not reflective of my full history and physical exam that was personally taken and clarified. Consequentially, this preceding description of symptoms, which may include the patient's categorized chief complaint in the EMR, do not reflect my personal clinical impression, and the ultimate description of history of present illness and patient stated complaints should be deferred to this section of the note. Unless stated otherwise or congruent with this section of the note, additional signs, symptoms, or incongruence should be interpreted as inaccurate with my clinical impression. Related Data Previous Rx's ?Medication ?Instructions ?Recorded triamcinolone acetonide 0.5 % 1 applic topical TID #30 grams 11/27/24 topical cream Allergies Allergy/AdvReac Type Severity Reaction Status Date / Time No Known Allergies Allergy Verified 11/27/24 10:47 [facility] Disclaimer: The information contained in this section may have been updated after the patient was seen, as this information can be updated by other users. Medical History Kidney stones Family History Other Cancer Diabetes Heart attack Hypertension Social History Smoking Status: Never smoker alcohol intake: never substance use type: denies use current occupational status: unemployed Travel in the last 8 weeks?: None Have you lived/traveled outside US in past 30 days?: No Contact w/someone who lives/traveled outside US past 30 days?: No Exposure to someone with infectious disease in past 14 days?: No Do you have a fever (greater than 100.4 F or 38 C)?: No Have you tested positive for COVID-19?: No Exposed to someone with COVID-19 in past 14 days?: No Do you have a sore throat?: No Do you have a cough?: No Do you have any weakness?: No Do you have any diarrhea?: No Are you experiencing any unusual bleeding?: No Do you have any muscle aches/pain?: No Do you have any abdominal pain?: No Are you experiencing loss of taste or smell?: No Other Medical History Have you received the Flu Vaccine for this season: No Have you received the Pneumonia Vaccine: No ROS Obtained: Yes Systems reviewed as appropriate & no additional complaints except as documented Physical Exam General General appearance: alert and in no apparent distress Head Head exam: atraumatic and normocephalic Eye Eye exam: Present PERRL and EOMI ENT ENT exam: Present mucous membranes moist Neck Neck exam: Present normal inspection Chest Chest inspection: Present normal inspection and symmetric chest wall rise Respiratory Respiratory exam: Absent respiratory distress Cardiovascular Cardiovascular exam: Present regular rate Extremities Exam Extremities exam: Present other (1.5 cm curvilinear laceration over the left long fingertip without nailbed involvement, no significant contamination.) Neurological Exam Neurological exam: Present alert Psychiatric Psychiatric exam: Present normal affect Skin Skin exam: Present warm and dry Medical Decision Making Medical Records Screening: Per USPSTF and CDC recommendations, given the prevalence of disease in our region, it is our hospital?s policy to screen for HIV and viral Hepatitis for all patients aged 18 and over and those with ongoing risk factors. Sebas Inquiry Pt receiving controlled substance: No Vital Signs: 02/27/25 08:39 02/27/25 08:39 Temperature 98.3 F 98.3 F Temperature Source Oral Oral Pulse Rate 74 Pulse Rate [Right] 74 Respiratory Rate 18 18 Blood Pressure 133/88 Blood Pressure [Right Arm] 133/88 Blood Pressure Mean [Right Arm] 103 Blood Pressure Source Automatic Cuff Blood Pressure Source [Right Arm] Automatic Cuff Blood Pressure Position Supine Blood Pressure Position [Right Arm] Supine 02 Sat by Pulse Oximetry 98 98 Oxygen Delivery Method Room Air Room Air Orders (Tests/Meds): ORDERS Category Date Time Status HIV Combo Stat Lab 02/27/25 08:49 Ordered Hepatitis C Ab Qual. W/ RFX Stat Lab 02/27/25 08:49 Ordered Medical Decision Narrative: In summary patient is a 34-year-old female with past medical history of scrota above who presents emergency department for evaluation traumatic injury sustained to her nondominant middle finger. Patient is hemodynamically stable and nontoxic-appearing upon arrival, afebrile. Tdap is up-to-date. Wound underwent primary repair facilitated by digital block with success. Patient tolerated the procedure well and is appropriate for outpatient management at this time bacitracin was applied over top of the sutures and finger was splinted patient was given return precautions. Procedure: Procedure performed was laceration repair. Procedure performed by Mumtaz Rankin. Site was left middle finger tip, length was 1.5 cm. Digital block was performed with 1% lidocaine without epinephrine approximately 8 cc infused, delayed anesthesia was achieved. In a simple interrupted fashion 3 sutures were placed of 5-0 Ethilon after irrigation with approximately 700 cc of sterile water., approximation achieved, hemostasis achieved. Patient tolerated the procedure well there were no immediate complications. Critical Care Critical Care Time Critical Care Time: No
[2025-02-27 09:12] VITALS: BP 133/88; PULSE 76; RESP 18; TEMP 36.8; O2SAT 98
[2025-02-27] MEDS: BACITRACIN OINT 0.9GM UDP 1 EACH TP (09:12)
== END 2025-02-27 09:21 | disposition home or self-care (01) ==
PROVIDERS: Emergency Provider Emergency Medicine; PCP Family Medicine
DX: S61.219A Laceration without foreign body of unspecified finger without damage to nail, initial encounter (principal)
CPT/HCPCS: 99283